=== PATIENT | female | born 1945 | race Caucasian/White ===

== ENCOUNTER 2018-02-06 00:50 | Observation (INO) | payer OTHER ==
[~2018-02-06] VITALS: Ht 167.6 cm; Wt 81.8 kg
[~2018-02-06 00:50] MED LIST: CITA20TA4 PO; LOSA25TA PO
[2018-02-06 01:07] VITALS: BP 157/72; PULSE 55; RESP 16; TEMP 98.1; O2SAT 97
[2018-02-06] MEDS ORDERED: MORPHINE SULFATE 4 MG/ML INJ IV PUSH PRN (01:30)
[2018-02-06] MEDS ORDERED: SODIUM CHLORIDE 0.9% FLUSH 10 ML FLUSH IV FLUSH PRN ×2 (01:30)
[2018-02-06] MEDS ORDERED: ONDANSETRON HCL 4 MG/2 ML VIAL IV PUSH PRN (01:30)
[2018-02-06] MEDS ORDERED: ACETAMINOPHEN 500 MG CPLT PO PRN (01:30)
[2018-02-06 04:38] VITALS: BP 118/56; PULSE 66; RESP 16; TEMP 98; O2SAT 98
[2018-02-06 07:18] VITALS: PULSE 54
[2018-02-06 08:02] VITALS: BP 157/80; PULSE 63; RESP 18; TEMP 98.9; O2SAT 95
--- NOTE | 2018-02-06 08:39 | HHI.HP ---
HPI Primary Care Physician No Primary Care Physician Chief Complaint Chest pain History of Present Illness This is a 72-year-old female with history of hypertension that presents to the [place] ED to be evaluated for chest discomfort and was subsequent transported to the chest pain center for further evaluation. She states that she has had 3 days of constant left-sided chest discomfort. She points to the left lower chest/left upper abdominal area. She states that sometimes leaning to the left or bending forward worsens the symptoms. Denies associated shortness of breath , nausea, or diaphoresis. Denies history of heart disease. Cannot recall having prior stress test. Review of Systems General: Patient denies fevers, chills, and recent travel. HEENT: Patient denies headache, sore throat, difficulty swallowing. Cardiovascular: Has the chest discomfort as mentioned above. Denies sensation of heart beating rapidly or irregularly. No syncope. Denies diaphoresis. Respiratory: Occasional nonproductive cough. Denies shortness of breath or inspirational chest discomfort. Denies wheezing or hemoptysis. GI: Patient denies nausea, vomiting, diarrhea, abdominal pain, bloody stools. Musculoskeletal: Patient denies joint pain or edema. Denies calf pain or edema. Neurovascular: Patient denies numbness, tingling, weakness in extremities. Denies headache. Endocrine: Denies polyuria and polydipsia. Hematologic: Denies easy bruising. Skin: Denies rash or itching. Past Family Social History Allergies: Coded Allergies: Sulfa (Sulfonamide Antibiotics) (Verified Allergy, Severe, 02/05/18) ALLERGY codeine (Verified Allergy, Severe, 02/05/18) ALELRGY Past Medical History Hypertension. Denies hyperlipidemia, diabetes, and CAD. Past Surgical History Appendectomy. Reported Medications Reported Meds & Active Scripts Active Reported Citalopram (Citalopram Hydrobromide) 20 Mg Tab 20 Mg PO DAILY Losartan (Losartan Potassium) 25 Mg Tab 25 Mg PO DAILY Active Ordered Medications Current Medications Medications (Trade) Dose Ordered Sig/Arturo Route Start Time Stop Time Status Last Admin (NS Flush) 2 ml UNSCH PRN IV FLUSH 02/06/18 01:30 (NS Flush) 2 ml UNSCH PRN IV FLUSH 02/06/18 01:30 (Tylenol) 500 mg Q4H PRN PO 02/06/18 01:30 (Morphine Inj) 2 mg Q4H PRN IV PUSH 02/06/18 01:30 (Zofran Inj) 4 mg Q6H PRN IV PUSH 02/06/18 01:30 (Aspirin) 325 mg DAILY PO 02/07/18 09:00 (Cozaar) 25 mg DAILY PO 02/06/18 09:00 Family History There is family history of CAD. Social History Non-smoker. Denies alcohol or illicit drug use. Physical Exam Vital Signs Vital Signs Date Time Temp Pulse Resp B/P (MAP) Pulse Ox O2 Delivery O2 Flow Rate FiO2 02/06/18 08:02 98.9 63 18 157/80 (105) 95 02/06/18 07:18 54 02/06/18 04:38 98.0 66 16 118/56 (76) 98 02/06/18 01:07 98.1 55 16 157/72 (100) 97 Physical Exam GENERAL: This is a well-nourished, well-developed patient, in no apparent distress. Patient speaks in clear complete sentences. Patient is pleasant. HEENT: Head is atraumatic and normocephalic. Neck is supple without lymphadenopathy and trachea is midline. No JVD or carotid bruits. CARDIOVASCULAR: Regular rate and rhythm without murmurs, gallops, or rubs. RESPIRATORY: Clear to auscultation. Breath sounds equal bilaterally. No wheezes , rales, or rhonchi. Chest wall is nontender. No use of accessory muscles. GASTROINTESTINAL: Abdomen is nontender, nondistended. Abdomen soft. No obvious pulsatile mass or bruit. No CVA tenderness. Strong femoral pulses bilaterally. Normal bowel sounds in all quadrants. MUSCULOSKELETAL: Patient is moving upper and lower extremities freely. No calf tenderness or edema, no Homans sign. Strong pulses in upper and lower extremities. NEUROLOGICAL: Patient is alert and oriented. Cranial nerves 2-12 are grossly intact. No focal deficits and speech is clear. SKIN: No rash and turgor is normal. Imaging CT pulmonary angiogram read by radiologist as: 1. No evidence of pulmonary embolism.2. No acute pulmonary infiltrates.3. Cardiomegaly Chest x-ray reveals nothing acute. Course EKGs are sinus rhythm without significant ST segment depressions or elevations. Caprini VTE Risk Assessment Caprini VTE Risk Assessment: Mod/High Risk (score >= 2) Caprini Risk Assessment Model Point Value = 1 Point Value = 2 Point Value = 3 Point Value = 5 Age 41-60 Minor surgery BMI > 25 kg/m2 Swollen legs Varicose veins or History of unexplained or recurrent spontaneous Oral contraceptives or hormone replacement Sepsis (< 1 month) Serious lung disease, including pneumonia (< 1 month) Abnormal pulmonary function Acute myocardial infarction Congestive heart failure (< 1 month) History of inflammatory bowel disease Medical patient at bed rest Age 61-74 Arthroscopic surgery Major open surgery (> 45 min) Laparoscopic surgery (> 45 min) Malignancy Confined to bed (> 72 hours) Immobilizing plaster cast Central venous access Age >= 75 History of VTE Family history of VTE Factor V Leiden Prothrombin [id number] Lupus anticoagulant Anticardiolipin antibodies Elevated serum homocysteine Heparin-induced thrombocytopenia Other congenital or acquired thrombophilia Stroke (< 1 month) Elective arthroplasty Hip, pelvis, or leg fracture Acute spinal cord injury (< 1 month) Prophylaxis Regimen Total Risk Factor Score Risk Level Prophylaxis Regimen 0-1 Low Early ambulation 2 Moderate Order ONE of the following: *Sequential Compression Device (SCD) *Heparin 5000 units SQ BID 3-4 Higher Order ONE of the following medications: *Heparin 5000 units SQ TID *Enoxaparin/Lovenox 40 mg SQ daily (WT < 150 kg, CrCl > 30 mL/min) *Enoxaparin/Lovenox 30 mg SQ daily (WT < 150 kg, CrCl > 10-29 mL/min) *Enoxaparin/Lovenox 30 mg SQ BID (WT < 150 kg, CrCl > 30 mL/min) AND/OR *Sequential Compression Device (SCD) 5 or more Highest Order ONE of the following medications: *Heparin 5000 units SQ TID (Preferred with Epidurals) *Enoxaparin/Lovenox 40 mg SQ daily (WT < 150 kg, CrCl > 30 mL/min) *Enoxaparin/Lovenox 30 mg SQ daily (WT < 150 kg, CrCl > 10-29 mL/min) *Enoxaparin/Lovenox 30 mg SQ BID (WT < 150 kg, CrCl > 30 mL/min) AND *Sequential Compression Device (SCD) Assessment and Plan Assessment and Plan * Chest pain: Patient has had constant discomfort for 3 days. She has had serial cardiac enzymes and EKGs for ruling out purposes. Troponins have been normal. She was seen by Dr. Askew of cardiology in the chest pain center. She will undergo a Anupam protocol ETT and be discharge if her stress test is nonischemic with instructions to follow-up with PCP and to return to ED for interval issues. She should follow a bland diet. * Hypertension: Continue medication. Patient is stable at this time. She is agreeable to this plan. Jorge Luis Beatty February 06, 2018 08:39
[2018-02-06] MEDS ORDERED: LOSARTAN 25 MG TAB PO SCH (09:00)
--- NOTE | 2018-02-06 09:48 | HHI.DCPOC ---
Discharge Care Plan Diagnosis: (1) Chest pain (2) Hypertension Goals to Promote Your Health * To prevent worsening of your condition and complications * To maintain your health at the optimal level Directions to Meet Your Goals Take your medications as prescribed Follow your dietary instruction Follow activity as directed Keep your appointments as scheduled Take your immunizations and boosters as scheduled If your symptoms worsen call your PCP, if no PCP go to Urgent Care Center or Emergency Room Smoking is Dangerous to Your Health. Avoid second hand smoke Call the 24-hour hour crisis hotline for domestic abuse at Jorge Luis Beatty February 06, 2018 09:48
[2018-02-07] MEDS ORDERED: ASPIRIN 325 MG TAB PO SCH (09:00)
--- NOTE | 2018-02-08 07:52 | TR ---
Date Performed: 02/07/2018 Time Performed: 14:14:07 DOCTOR: Bony Joseph DRUG LIST: CLINICAL HISTORY: REASON FOR TEST: REASON FOR ENDING: OBSERVATION: CONCLUSION: COMMENTS: Maximal Anupam protocol stress test, heart rate 136, 91% of maximal. The patient exerci sed for 6 minutes. There was upsloping ST depression- more inferiorly. No chest pain. Recovery is nor mal. Overall, negative for ischemia. No arrhythmia seen.
== END 2018-02-06 11:50 | disposition home or self-care (01) ==
LOC: NEDDLT 00:50 → NEPFCDU 01:00
PROVIDERS: ADMIT Internal Medicine Interventional Cardiology; ATTEND Internal Medicine Interventional Cardiology
DX: R07.9 Chest pain, unspecified (principal); I10 Essential (primary) hypertension; Z79.899 Other long term (current) drug therapy; Z82.49 Family history of ischemic heart disease and other diseases of the circulatory system; I51.7 Cardiomegaly
CPT/HCPCS: 71045; 71275; 80053; 84484; 85025; 85379; 85610; 85730; 93005; 93017; 99285; G0378; Q9967